=== PATIENT | female | born 1995 | race African-American/Black ===

== ENCOUNTER 2018-02-25 21:18 | Emergency (ER) | payer OTHER | END 2018-02-26 00:27 | disposition home or self-care (01) | LOC: FTE 02-26 00:27 | DX: T19.2XXA Foreign body in vulva and vagina, initial encounter (principal); X58.XXXA Exposure to other specified factors, initial encounter; Y92.9 Unspecified place or not applicable | CPT/HCPCS: 99284; Z7502 ==